=== PATIENT | female | born 1990 | race Caucasian/White ===

== ENCOUNTER 2019-01-24 11:06 | Outpatient (CLI) | payer OTHER ==
[~2019-01-24] VITALS: Ht 152.4 cm; Wt 34.0 kg
[2019-01-24] MEDS ORDERED: no medication (13:54)
[2019-01-24 13:58] VITALS: BP 96/59
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
== END 2019-01-24 13:06 | disposition home or self-care (01) ==
LOC: PAN 11:06
DX: R63.4 Abnormal weight loss (principal); K59.00 Constipation, unspecified; K21.9 Gastro-esophageal reflux disease without esophagitis; K58.9 Irritable bowel syndrome, unspecified; Z88.0 Allergy status to penicillin; Z80.3 Family history of malignant neoplasm of breast; Z68.1 Body mass index [BMI] 19.9 or less, adult
CPT/HCPCS: 99202